=== PATIENT | male | born 1950 | race Caucasian/White ===

== ENCOUNTER 2018-03-12 21:19 | Emergency (ER) | payer MEDICARE, BC ==
[2018-03-12 21:27] VITALS: BP 139/84
[2018-03-12] MEDS ORDERED: Acetaminophen/oxyCODONE 325-5 MG Tab PO ONE (21:44)
--- NOTE | 2018-03-12 21:58 | EDM.PDOC ---
ED HPI GENERAL MEDICAL PROBLEM - General Chief Complaint: Upper Extremity Injury/Pain Stated Complaint: HAND INJURY Time Seen by Provider: 03/12/18 21:33 Source of Information: Reports: Patient History Limitations: Reports: No Limitations - History of Present Illness INITIAL COMMENTS - FREE TEXT/NARRATIVE: 68 year old male presents for evaluation and treatment of an injury to the left hand. Patient reports he was walking when he tripped on a rug. Fell onto his left hand. Reports pain to the first and 5th metacarpals. No numbness or tingling. No swelling, pallor or erythema. No obvious deformity. Took 1gram of tylenol prior to arrival in the ER and continues to have pain. Patient denies any head trauma from the fall. Onset: Today Location: Reports: Upper Extremity, Left Left Hand Pain Score (Numeric/FACES): 7 - Related Data Allergies Allergy/AdvReac Type Severity Reaction Status Date / Time No Known Allergies Allergy Verified 03/12/18 21:27 Home Meds: Home Meds Alpha Lipoic Acid 600 mg PO DAILY 07/11/15 [History] Aspirin [Halfprin] 81 mg PO DAILY 07/11/15 [History] Cetirizine [ZyrTEC] 10 mg PO DAILY 07/11/15 [History] Cholecalciferol (Vitamin D3) [Vitamin D3] 2,000 units PO DAILY 07/11/15 [History ] Cyanocobalamin (Vitamin B12) [Vitamin B12] 2,500 mcg SL DAILY 07/11/15 [History] Docusate Sodium [Colace] 100 mg PO BID 07/11/15 [History] Furosemide 20 mg PO BID 07/11/15 [History] Gemfibrozil 600 mg PO DAILY 07/11/15 [History] Levothyroxine Sodium [Tirosint] 50 mcg PO DAILY 07/11/15 [History] Multivit-Min/FA/Lycopene/Lut [Centrum Silver Tablet] 1 tab PO DAILY 07/11/15 [ History] Naproxen 250 mg PO BID 07/11/15 [History] Psyllium with Sucrose [Metamucil] 1 each PO BID PRN 07/11/15 [History] Venlafaxine [Effexor XR] 150 mg PO DAILY 07/11/15 [History] guaiFENesin [Mucinex] 400 mg PO BID 10/10/15 [History] Gluc/Damien-Msm#2/C/D3/Antonio/Born [Blbwlwrvkk-Bsrtpzzrjlf-BVT] 1,500 mg PO BID 02/14 [History] Losartan [Cozaar] 50 mg PO DAILY 09/05/16 [History] Fish Oil/DHA/EPA [Fish Oil 1,200 MG] 1 tab PO DAILY 10/16/16 [History] Venlafaxine [Effexor] 75 mg PO DAILY 10/16/16 [History] Acetaminophen/oxyCODONE [Percocet 325-5 MG] 1 tab PO Q4HR PRN #15 tab 03/12/18 [ Rx] Past Medical History Other Cardiovascular History: occasional swelling in feet and SOB when climbing the steps Other Respiratory History: seasonal allergies Neurological History: Reports: Neuropathy, Peripheral Psychiatric History: Reports: Depression - Past Surgical History HEENT Surgical History: Reports: Cataract Surgery, Oral Surgery, Tonsillectomy, Other (See Below) GI Surgical History: Reports: Appendectomy, Cholecystectomy Male Surgical History: Reports: TURP-Transurethral Resection of Prostate Musculoskeletal Surgical History: Reports: Other (See Below) Social & Family History - Family History Cardiac: Reports: Bypass Oncologic: Reports: Prostate - Tobacco Use Smoking Status *Q: Never Smoker Second Hand Smoke Exposure: No - Caffeine Use Caffeine Use: Reports: None - Recreational Drug Use Recreational Drug Use: No Review of Systems - Review of Systems Review Of Systems: See Below Musculoskeletal: Reports: Hand Pain (left). Denies: Joint Swelling Skin: Denies: Pallor, Bruising, Wound Neurological: Denies: Numbness, Tingling ED EXAM, GENERAL - Physical Exam Exam: See Below Exam Limited By: No Limitations General Appearance: Alert, WD/WN, No Apparent Distress Respiratory/Chest: No Respiratory Distress Cardiovascular: Normal Peripheral Pulses, Regular Rate, Rhythm Peripheral Pulses: 2+: Radial (L), Radial (R) Extremities: Normal Inspection, Normal Range of Motion, Normal Capillary Refill , Other (tenderness to palpation to the first and fifth metacarpals, no snuff box tenderness). No: Joint Swelling Neurological: Alert, Oriented, Normal Cognition Psychiatric: Normal Affect, Normal Mood Skin Exam: Warm, Dry, Normal Color Course - Vital Signs Last Recorded V/S: Last Vital Signs Temp 97.9 F 03/12/18 21:24 Pulse 87 03/12/18 21:24 Resp 18 06/11/18 21:24 BP 139/84 03/12/18 21:24 Pulse Ox 98 03/12/18 21:24 - Orders/Labs/Meds Meds: Medications Discontinued Medications Generic Name Dose Route Start Last Admin Trade Name Omar PRN Reason Stop Dose Admin Oxycodone/Acetaminophen 1 tab 03/12/18 21:44 03/12/18 21:51 Percocet 325-5 Mg PO 03/12/18 21:45 1 tab ONETIME ONE Administration - Radiology Interpretation Free Text/Narrative:: xray reviewed by myself and Dr. Hussein shows no acute fractures or dislocations. - Re-Assessments/Exams Free Text/Narrative Re-Assessment/Exam: 03/12/18 22:32 Reviewed the xray results with the patient. Will place in a splint. Follow-up with PCP if not better within one week. Warned if not better may require a repeat xray. Discharge instructions as documented. Departure - Departure Time of Disposition: 22:35 Disposition: Home, Self-Care 01 Condition: Fair Clinical Impression: Fall, Hand pain, left - Discharge Information Prescriptions: Acetaminophen/oxyCODONE [Percocet 325-5 MG] 1 tab PO Q4HR PRN #15 tab PRN Reason: Pain Instructions: Hand Pain Referrals: Reji Martin MD [Primary Care Provider] - Forms: ED Department Discharge, ED Return to Work/School Form Additional Instructions: you were given medication ER in the ER that can affect your ability to drive and operate machinery. Do not drive or operate machinery within 12 hours of taking prescription narcotic pain medication. [id number] ibuprofen as needed for pain. Do not take more than 3200 mg of ibuprofen from all sources in 1 day. Percocet 1 or 2 tabs every 4-6 hours as needed for severe pain not relieved by ibuprofen. Percocet is habit-forming, take as few of these as needed to control your pain. Do not drive or operate machinery within 12 hours of taking Percocet. Follow-up with your primary care provider for symptoms have not improved much within one week. wear the wrist splint as needed. Ice and elevate the hand, below the level of heart. Please return to ER if your symptoms change or worsen.
--- NOTE | 2018-03-13 08:45 | CR ---
Right hand: Four views of the right hand were obtained. Comparison: No previous hand exam. Mild joint space narrowing is seen within the DIP and PIP joints. Bony structures are osteopenic. Mild degenerative change is noted within the CMC joints of the thumb. No acute fracture, dislocation or other bony abnormality is identified. Impression: 1. Incidental findings as noted above. Nothing acute is appreciated on left hand exam. Diagnostic code #2
== END 2018-03-12 22:58 | disposition home or self-care (01) ==
LOC: JD.ED 21:19
DX: M79.642 Pain in left hand (principal); Z79.899 Other long term (current) drug therapy; Z79.82 Long term (current) use of aspirin; W18.09XA Striking against other object with subsequent fall, initial encounter
CPT/HCPCS: 73130; 99283; A9270

== ENCOUNTER 2020-02-02 11:01 | Emergency (ER) | payer MEDICARE, BC, MEDICAID, OTHER ==
[2020-02-02 11:15] VITALS: BP 129/77; PULSE 73
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
--- NOTE | 2020-02-02 12:33 | CR ---
Left wrist: 4 views left wrist were obtained. Comparison: No prior wrist exam is available. Joint spaces are preserved. No acute fracture, dislocation or other bony abnormality is appreciated. Impression: 1. No abnormality is identified on left wrist exam. Diagnostic code #1 This report was dictated in MDT
== END 2020-02-02 12:35 | disposition home or self-care (01) ==
LOC: JD.ED 11:01
DX: S63.502A Unspecified sprain of left wrist, initial encounter (principal); F32.9 Major depressive disorder, single episode, unspecified; Z79.899 Other long term (current) drug therapy; Z79.82 Long term (current) use of aspirin; W50.0XXA Accidental hit or strike by another person, initial encounter
CPT/HCPCS: 29125; 73110-26-LT; 73110-LT; 99283; 99283-25

== ENCOUNTER 2021-07-01 08:19 | Emergency (ER) | payer MEDICARE, BC, MEDICAID, OTHER ==
[2021-07-01 08:53] VITALS: BP 153/62; PULSE 85
--- NOTE | 2021-07-01 09:09 | EDM.PDOC ---
ED HPI GENERAL MEDICAL PROBLEM - General Chief Complaint: Lower Extremity Injury/Pain Stated Complaint: fall last nigh body pains Time Seen by Provider: 07/01/21 08:45 Source of Information: Reports: Patient History Limitations: Reports: No Limitations - History of Present Illness INITIAL COMMENTS - FREE TEXT/NARRATIVE: The patient presents with pain after a fall. The patient fell down some stairs last night. He did not hit his head or hurt his neck. He has no chest or abdominal pain. He has no headache. He has right shoulder, right hand, right knee and left low back pain. He took some tylenol last night but did not sleep well due to the pain. He is not on any blood thinners. Onset: Sudden Duration: Day(s): (last night) Location: Reports: Back, Upper Extremity, Right, Lower Extremity, Right Quality: Reports: Sharp Severity: Moderate Improves with: Reports: Immobilization Worsens with: Reports: Movement Context: Reports: Trauma (fell down some stairs) Associated Symptoms: Reports: No Other Symptoms Left Hip Pain Score (Numeric/FACES): 5 - Related Data Allergies Allergy/AdvReac Type Severity Reaction Status Date / Time No Known Allergies Allergy Verified 02/02/20 11:10 Home Meds: Home Meds Alpha Lipoic Acid 600 mg PO DAILY 07/11/15 [History] Aspirin [Halfprin] 81 mg PO DAILY 07/11/15 [History] Cetirizine [ZyrTEC] 10 mg PO DAILY 07/11/15 [History] Cholecalciferol (Vitamin D3) [Vitamin D3] 2,000 units PO DAILY 07/11/15 [ History] Cyanocobalamin (Vitamin B12) [Vitamin B12] 2,500 mcg SL DAILY 07/11/15 [History] Docusate Sodium [Colace] 100 mg PO BID 07/11/15 [History] Furosemide 20 mg PO BID 07/11/15 [History] Gemfibrozil 600 mg PO DAILY 07/11/15 [History] Levothyroxine Sodium [Tirosint] 50 mcg PO DAILY 07/11/15 [History] Multivit-Min/FA/Lycopen/Lutein [Centrum Silver Tablet] 1 tab PO DAILY 07/11/15 [History] Naproxen 250 mg PO BID 07/11/15 [History] Psyllium with Sucrose [Metamucil] 1 each PO BID PRN 10/10/15 [History] Venlafaxine [Effexor XR] 150 mg PO DAILY 07/11/15 [History] guaiFENesin [Mucinex] 400 mg PO BID 07/11/15 [History] Glucosam/Chond-MSM 2/C/D3/Antonio [Qxyuolkatt-Pcyykrucegp-IWZ] 1,500 mg PO BID 09/05/16 [History] Losartan [Cozaar] 50 mg PO DAILY 09/05/16 [History] Fish Oil/DHA/EPA [Fish Oil 1,200 MG] 1 tab PO DAILY 10/16/16 [History] Venlafaxine [Effexor] 75 mg PO DAILY 10/16/16 [History] Acetaminophen/oxyCODONE [Percocet 325-5 MG] 1 tab PO Q4HR PRN #15 tab 03/12/18 [Rx] Cyclobenzaprine [Flexeril] 10 mg PO TID PRN #20 tab 07/01/21 [Rx] Past Medical History Cardiovascular History: Reports: High Cholesterol, Hypertension Other Cardiovascular History: occasional swelling in feet and SOB when climbing the steps Other Respiratory History: seasonal allergies Neurological History: Reports: Neuropathy, Peripheral Psychiatric History: Reports: Depression - Past Surgical History HEENT Surgical History: Reports: Cataract Surgery, Oral Surgery, Tonsillectomy, Other (See Below) Other HEENT Surgeries/Procedures: nasal surgery GI Surgical History: Reports: Appendectomy, Cholecystectomy Male Surgical History: Reports: TURP-Transurethral Resection of Prostate Musculoskeletal Surgical History: Reports: Other (See Below) Other Musculoskeletal Surgeries/Procedures:: surgery of right and left feet, femur fracture fixation Social & Family History - Family History Cardiac: Reports: Bypass Oncologic: Reports: Prostate - Tobacco Use Tobacco Use Status *Q: Never Tobacco User - Caffeine Use Caffeine Use: Reports: None - Recreational Drug Use Recreational Drug Use: No Review of Systems - Review of Systems Review Of Systems: See Below Constitutional: Reports: No Symptoms Eyes: Reports: No Symptoms Ears: Reports: No Symptoms Nose: Reports: No Symptoms Mouth/Throat: Reports: No Symptoms Respiratory: Reports: No Symptoms Cardiovascular: Reports: No Symptoms GI/Abdominal: Reports: No Symptoms Genitourinary: Reports: No Symptoms Musculoskeletal: Reports: Back Pain, Other (right shoulder, knee and hand pain) ED EXAM, GENERAL - Physical Exam Exam: See Below Exam Limited By: No Limitations General Appearance: Alert, No Apparent Distress Ears: Normal External Exam Nose: Normal Inspection Head: Atraumatic, Normocephalic Neck: Normal Inspection, Supple, Non-Tender Respiratory/Chest: No Respiratory Distress, Lungs Clear, Normal Breath Sounds Cardiovascular: Regular Rate, Rhythm, No Edema, No Murmur GI/Abdominal: Soft, Non-Tender, No Organomegaly, No Mass Back Exam: Other (Pain upon palpation to the left low back) Extremities: Normal Inspection (Pain upon palpation to the right shoulder, right hand and fingers, right knee good sensation distally) Course - Vital Signs Last Recorded V/S: Last Vital Signs Temp 96.5 F L 07/01/21 08:48 Pulse 85 07/01/21 08:48 Resp 16 07/01/21 08:48 BP 153/62 H 07/01/21 08:48 Pulse Ox 98 07/01/21 08:48 - Re-Assessments/Exams Free Text/Narrative Re-Assessment/Exam: 07/01/21 09:11 I ordered an x-ray of his low back, right shoulder, right hand and right knee. 07/01/21 10:21 The x-rays show nothing acute. There is degenerative changes and an old compression deformity at T12. I will get him a muscle relaxer and discharge him home. Departure - Departure Time of Disposition: 10:25 Disposition: Home, Self-Care 01 Condition: Good Clinical Impression: Fall Qualifiers: Encounter type: initial encounter Qualified Code(s): W19.XXXA - Unspecified fall, initial encounter Low back pain Qualifiers: Chronicity: acute Back pain laterality: left Sciatica presence: without sciatica Qualified Code(s): M54.5 - Low back pain Contusion of right hand Qualifiers: Encounter type: initial encounter Qualified Code(s): S60.221A - Contusion of right hand, initial encounter Sprain of right knee Qualifiers: Encounter type: initial encounter Involved ligament of knee: unspecified ligament Qualified Code(s): S83.91XA - Sprain of unspecified site of right knee, initial encounter - Discharge Information *PRESCRIPTION DRUG MONITORING PROGRAM REVIEWED*: Not Applicable *COPY OF PRESCRIPTION DRUG MONITORING REPORT IN PATIENT AYLIN: Not Applicable Prescriptions: Cyclobenzaprine [Flexeril] 10 mg PO TID PRN #20 tab PRN Reason: Pain Referrals: Reji Martin MD [Primary Care Provider] - 1 Week Forms: ED Department Discharge Additional Instructions: Ice the areas that hurt for 15 minutes 3 times per day for 2 days. Take tylenol or motrin for pain. You may also take flexeril every 8 hours as needed for pain. Follow up with Dr Martin. Please return if you are worse. Sepsis Event Note (ED) - Focused Exam Vital Signs: Vital Signs Temp Pulse Resp BP Pulse Ox 07/01/21 08:48 96.5 F L 85 16 153/62 H 98
--- NOTE | 2021-07-01 09:58 | CR ---
Right hand: 4 views of the right hand were obtained. Comparison: No prior right hand study is available. Mild joint space narrowing is scattered within the DIP and PIP joints. No acute fracture, dislocation or other bony abnormality is appreciated. Impression: 1. Mild degenerative change as described above. 2. Nothing acute is seen on right hand exam. Diagnostic code #2
--- NOTE | 2021-07-01 10:02 | CR ---
Right knee: 4 views of the right knee were obtained. Comparison: No prior right knee study is available. Small spur is noted at the attachment of the quadriceps tendon to the patella. Small spur is also noted off the anterior tibial tuberosity at the attachment of the patellar ligament. Medial and lateral joint spaces are fairly well preserved. Bony structures are slightly osteopenic. No acute fracture, dislocation or other bony abnormality is appreciated. Impression: 1. Small patellar spur and spur off the anterior tibial tuberosity. 2. Nothing acute is seen on right knee exam. Diagnostic code #2
--- NOTE | 2021-07-01 10:06 | CR ---
Lumbar spine: AP, lateral and coned-down lateral view centered to the lumbosacral junction are obtained. Comparison: No prior lumbar spine imaging is available. Disc space narrowing is noted at T11-12, T12-L1, L1-2 and posteriorly at L2-3. Mild posterior disc space narrowing is seen at L4-5. Slight anterior wedging is seen at T12 and is most likely old. Scattered endplate osteophytes are seen throughout the lumbar and lower thoracic spines. Pedicles are intact. Visualized transverse and spinous processes show no discrete abnormality. No acute fracture or subluxation is seen. Orthopedic hardware is partially seen within the right hip. Surgical clips are seen from prior cholecystectomy. Impression: 1. Degenerative change as noted above. 2. Slight anterior wedging of T12 which is most likely old. 3. Old surgery as noted above. Nothing acute is appreciated. Diagnostic code #2
--- NOTE | 2021-07-01 10:07 | CR ---
Right shoulder: 3 views of the right shoulder were obtained. Comparison: No prior right shoulder study is available. Mild joint space narrowing is seen within the acromioclavicular joint. Minimal spurring is noted off the glenoid. No fracture, dislocation or other bony abnormality is appreciated. Impression: 1. Mild degenerative change. 2. Nothing acute is appreciated on right shoulder study. Diagnostic code #2
== END 2021-07-01 10:52 | disposition home or self-care (01) ==
LOC: JD.ED 08:19
DX: S83.91XA Sprain of unspecified site of right knee, initial encounter (principal); S60.221A Contusion of right hand, initial encounter; M54.5 Low back pain; E78.00 Pure hypercholesterolemia, unspecified; I10 Essential (primary) hypertension; Z79.82 Long term (current) use of aspirin; Z79.899 Other long term (current) drug therapy; W10.9XXA Fall (on) (from) unspecified stairs and steps, initial encounter
CPT/HCPCS: 72100; 72100-26; 73030-26-RT; 73030-RT; 73130-26-RT; 73130-RT; 73564-26-RT; 73564-RT; 99283-25

== ENCOUNTER 2024-03-12 16:14 | Emergency (ER) | payer MEDICARE, BC, MEDICAID ==
[2024-03-12] MEDS: Acetaminophen 325 MG Tab PO ONE (16:37)
[2024-03-12] MEDS: fentaNYL 100 MCG/2 ML SDV IVPUSH ONE (16:38)
[2024-03-12] MEDS: Lidocaine 1% 20 ML MDV INJECT ONE (16:38)
[2024-03-12 20:50] VITALS: BP 135/85; PULSE 88
== END 2024-03-12 20:54 | disposition home or self-care (01) ==
LOC: JD.ED 16:14
DX: S42.212A Unspecified displaced fracture of surgical neck of left humerus, initial encounter for closed fracture (principal); S52.571A Other intraarticular fracture of lower end of right radius, initial encounter for closed fracture; I10 Essential (primary) hypertension; E11.40 Type 2 diabetes mellitus with diabetic neuropathy, unspecified; Z90.49 Acquired absence of other specified parts of digestive tract; Z79.82 Long term (current) use of aspirin; Z79.899 Other long term (current) drug therapy; W01.0XXA Fall on same level from slipping, tripping and stumbling without subsequent striking against object, initial encounter; Y92.29 Other specified public building as the place of occurrence of the external cause
CPT/HCPCS: 23605; 25605; 71045; 73030; 73060; 73070; 73100; 99283; A9270; 25505; J3010; J3490

== ENCOUNTER 2024-03-19 15:16 | Emergency (ER) | payer MEDICARE, BC, MEDICAID ==
[2024-03-19] MEDS: Potassium Chloride 10 MEQ in Premix Bag 1 BAG IV SCH (17:21)
[2024-03-19] MEDS: Sodium Chloride 0.9% 1,000 ML IV SCH (17:22)
[2024-03-19] MEDS: Sodium Chloride 0.9% 10 ML Syringe FLUSH PRN (17:26)
[2024-03-19 17:43] LABS: BASOPHILS ABSOLUTE AUTO 0.1 K/mm3 (0.0-0.2); BASOPHILS PERCENT AUTO 0.5 % (0.0-1.0); EOSINOPHILS ABSOLUTE AUTO 0.2 K/mm3 (0.0-0.4); EOSINOPHILS PERCENT AUTO 1.6 % (0.0-6.0); HEMATOCRIT 37.6 % (42.0-52.0); HEMOGLOBIN 12.7 gm/dl (14.0-18.0); IMMATURE GRAN ABSOLUTE AUTO 0.07 K/mm3 (0.00-0.05); IMMATURE GRAN PERCENT AUTO 0.5 % (0.0-0.4); LYMPHOCYTES ABSOLUTE AUTO 2.4 K/mm3 (1.0-4.8); MEAN CORPUSCULAR HEMOGLOBIN 30.8 pg (28.0-32.0); MEAN CORPUSCULAR HGB CONC 33.8 g/dl (32.0-36.0); MEAN PLATELET VOLUME 9.5 fl (9.4-12.4); MONOCYTES ABSOLUTE AUTO 1.6 K/mm3 (0.0-0.8); MONOCYTES PERCENT AUTO 11.4 % (0.0-8.0); NEUTROPHILS ABSOLUTE AUTO 9.7 K/mm3 (1.8-7.7); PLATELET COUNT,PLT 404 K/mm3 (150-400); RED BLOOD CELL COUNT 4.13 M/mm3 (4.52-5.90); WHITE BLOOD CELL COUNT,WBC 14.04 K/mm3 (3.9-11.3)
[2024-03-19 18:00] LABS: A/G RATIO 0.7 (1-2); ALANINE AMINOTRANSFERASE,ALT 43 U/L (16-63); ALBUMIN 3.1 g/dl (3.4-5.0); ALKALINE PHOSPHATASE 80 U/L (46-116); ANION GAP 16.1 (5-15); BLOOD UREA NITROGEN,BUN 18 mg/dL (7-18); CARBON DIOXIDE,CO2 27 mEq/L (21-32); CHLORIDE,CL 95 mEq/L (98-107); ESTIMATED GFR 78 mL/min (>60); GLUCOSE RANDOM 126 mg/dL (70-99); PROTEIN TOTAL,TP 7.4 g/dl (6.4-8.2); SODIUM,NA 135 mEq/L (136-145)
[2024-03-19 18:03] LABS: ASPARTATE AMNIOTRANSFERASE,AST 39 U/L (15-37); POTASSIUM,K 3.1 mEq/L (3.5-5.1)
[2024-03-19 18:06] LABS: LACTIC ACID 1.2 mmol/L (0.4-2.0)
[2024-03-19 18:49] LABS: BILIRUBIN,URINE NEGATIVE (Negative); COLOR,URINE YELLOW (Yellow); GLUCOSE,URINE 2+ (Negative); KETONES,URINE TRACE (Negative); LEUKOCYTE ESTERASE,URINE 1+ (Negative); NITRITE,URINE POSITIVE (Negative); OCCULT BLOOD,URINE 1+ (Negative); PROTEIN,URINE TRACE (Negative)
[2024-03-19 18:50] LABS: APPEARANCE,URINE SLT CLOUDY (Clear)
[2024-03-19 19:22] LABS: BACTERIA,URINE MODERATE /hpf (FEW); MUCUS,URINE FEW /hpf (FEW); SQUAMOUS EPITHELIAL CELLS,UR 0-5 /hpf (0-5)
[2024-03-19] MEDS: Doxycycline Monohydrate 100 MG Cap PO ONE (19:57)
[2024-03-19 23:43] VITALS: BP 132/74; PULSE 86
== END 2024-03-19 23:05 | disposition home or self-care (01) ==
LOC: JD.ED 15:16
DX: E87.6 Hypokalemia (principal); T83.511A Infection and inflammatory reaction due to indwelling urethral catheter, initial encounter; N39.0 Urinary tract infection, site not specified; I10 Essential (primary) hypertension; E78.00 Pure hypercholesterolemia, unspecified; Z79.84 Long term (current) use of oral hypoglycemic drugs; Z79.899 Other long term (current) drug therapy; Z79.82 Long term (current) use of aspirin
CPT/HCPCS: 36415; 80053; 81001; 83605; 83735; 85025; 87040; 87086; 87088; 87186; 93005; 96361; 96365; 96366; 99285; A9270; J3480; J3490; J7030; 87077; 93010; 99284

== ENCOUNTER 2024-07-03 01:06 | Emergency (ER) | payer MEDICARE, BC, MEDICAID ==
[2024-07-03] MEDS ORDERED: Nitroglycerin/D5W 25 MG/250 ML BOTTLE IV SCH (01:30)
[2024-07-03 01:40] LABS: BASOPHILS ABSOLUTE AUTO 0.1 K/mm3 (0.0-0.2); BASOPHILS PERCENT AUTO 0.6 % (0.0-1.0); EOSINOPHILS ABSOLUTE AUTO 0.3 K/mm3 (0.0-0.4); EOSINOPHILS PERCENT AUTO 1.8 % (0.0-6.0); HEMATOCRIT 40.5 % (42.0-52.0); HEMOGLOBIN 13.2 gm/dl (14.0-18.0); IMMATURE GRAN PERCENT AUTO 0.6 % (0.0-0.4); LYMPHOCYTES ABSOLUTE AUTO 2.1 K/mm3 (1.0-4.8); LYMPHOCYTES PERCENT AUTO 11.7 % (24.0-44.0); MEAN CORPUSCULAR HEMOGLOBIN 30.5 pg (28.0-32.0); MEAN CORPUSCULAR HGB CONC 32.6 g/dl (32.0-36.0); MEAN CORPUSCULAR VOLUME 93.5 fl (83.0-99.0); MEAN PLATELET VOLUME 9.6 fl (9.4-12.4); MONOCYTES ABSOLUTE AUTO 1.3 K/mm3 (0.0-0.8); MONOCYTES PERCENT AUTO 7.1 % (0.0-8.0); NEUTROPHILS ABSOLUTE AUTO 14.1 K/mm3 (1.8-7.7); NEUTROPHILS PERCENT AUTO 78.2 % (41.0-71.0); PLATELET COUNT,PLT 318 K/mm3 (150-400); RED BLOOD CELL COUNT 4.33 M/mm3 (4.52-5.90); WHITE BLOOD CELL COUNT,WBC 17.98 K/mm3 (3.9-11.3)
[2024-07-03 02:05] LABS: A/G RATIO 1.2 (1-2); ALBUMIN 4.1 g/dl (3.4-5.0); ANION GAP 12.8 (5-15); BILIRUBIN TOTAL 0.5 mg/dL (0.2-1.0); BUN/CREATININE RATIO 14.5 (14-18); C-REACTIVE PROTEIN 0.33 mg/dL (<0.30); CALCIUM 9.2 mg/dL (8.5-10.1); CREATININE 1.1 mg/dL (0.7-1.3); EST CRCL DRUG DOSING (CG) 51.56 mL/min; MAGNESIUM 1.5 mg/dL (1.8-2.4); POTASSIUM,K 3.8 mEq/L (3.5-5.1); PROTEIN TOTAL,TP 7.5 g/dl (6.4-8.2); TSH 2.226 uIU/mL (0.358-3.74)
[2024-07-03 02:07] LABS: HEMOGLOBIN A1C 6.4 %
[2024-07-03 02:09] LABS: LACTIC ACID 2.4 mmol/L (0.4-2.0)
[2024-07-03] MEDS: Metoclopramide 10 MG/2 ML SDV IVPUSH ONE (02:29)
[2024-07-03] MEDS: diphenhydrAMINE 50 MG/ML SDV IVPUSH ONE (02:29)
[2024-07-03] MEDS: Dicyclomine 10 MG Cap PO ONE (02:29)
[2024-07-03] MEDS: Aspirin 81 MG Tab.Chew PO ONE (02:30)
[2024-07-03] MEDS: HYDROmorphone 0.5 MG/0.5 ML Syringe IVPUSH ONE (02:30)
[2024-07-03 02:46] LABS: APPEARANCE,URINE SLT CLOUDY (Clear); BILIRUBIN,URINE NEGATIVE (Negative); COLOR,URINE YELLOW (Yellow); GLUCOSE,URINE 3+ (Negative); KETONES,URINE NEGATIVE (Negative); LEUKOCYTE ESTERASE,URINE 1+ (Negative); NITRITE,URINE POSITIVE (Negative); OCCULT BLOOD,URINE NEGATIVE (Negative); PH,URINE 6.5 (5.0-8.0); PROTEIN,URINE NEGATIVE (Negative); UROBILINOGEN,URINE 0.2 (0.2-1.0)
[2024-07-03 02:47] LABS: RBC,URINE NOT SEEN /hpf (0-5)
[2024-07-03 02:48] LABS: AMORPHOUS SEDIMENT,URINE RARE /hpf (NOT SEEN); BACTERIA,URINE MODERATE /hpf (FEW); EPITHELIAL CELLS,URINE 0-5 /hpf (0-5); MUCUS,URINE NOT SEEN /hpf (FEW)
[2024-07-03] MEDS: cefTRIAXone 2 GM in Sodium Chloride 0.9% 100 ML IV ONE (02:56)
[2024-07-03] MEDS: Sodium Chloride 0.9% 1,000 ML IV SCH (02:56)
[2024-07-03] MEDS: Iopamidol 755 Mg/ML 100 ML Bottle IVPUSH ONE (03:45)
[2024-07-03] MEDS: Alum Hydrox/Mag Hydrox/Simeth 30 ML, Lidocaine 2% 15 ML PO ONE (04:55)
[2024-07-03] MEDS: Levofloxacin 500 MG Tab PO ONE (06:58)
[2024-07-03 08:04] VITALS: BP 140/90; PULSE 95
== END 2024-07-03 08:45 ==
LOC: JD.ED 01:06
DX: R07.89 Other chest pain (principal); K44.9 Diaphragmatic hernia without obstruction or gangrene; N10 Acute pyelonephritis; N31.2 Flaccid neuropathic bladder, not elsewhere classified; E78.00 Pure hypercholesterolemia, unspecified; I10 Essential (primary) hypertension; Z79.82 Long term (current) use of aspirin; Z79.84 Long term (current) use of oral hypoglycemic drugs; Z79.899 Other long term (current) drug therapy
CPT/HCPCS: 36415; 71045; 71045-26; 71275; 71275-26; 80053; 81001; 83036; 83605; 83615; 83690; 83735; 83880; 84443; 84484; 85025; 85379; 86140; 87086; 87088; 87186; 93005; 96361; 96365; 96375; 99285-25; A9270-GY; J0696; J1200; J2765; J3490; J7030; Q9967

== ENCOUNTER 2024-09-23 14:23 | Emergency (ER) | payer MEDICARE, BC, MEDICAID ==
[2024-09-23 15:29] VITALS: BP 135/84; PULSE 104
[2024-09-23 15:36] LABS: BASOPHILS ABSOLUTE AUTO 0.1 K/mm3 (0.0-0.2); BASOPHILS PERCENT AUTO 0.5 % (0.0-1.0); EOSINOPHILS ABSOLUTE AUTO 0.2 K/mm3 (0.0-0.4); EOSINOPHILS PERCENT AUTO 1.1 % (0.0-6.0); HEMATOCRIT 38.8 % (42.0-52.0); HEMOGLOBIN 12.8 gm/dl (14.0-18.0); IMMATURE GRAN ABSOLUTE AUTO 0.07 K/mm3 (0.00-0.05); IMMATURE GRAN PERCENT AUTO 0.5 % (0.0-0.4); LYMPHOCYTES ABSOLUTE AUTO 1.6 K/mm3 (1.0-4.8); LYMPHOCYTES PERCENT AUTO 10.7 % (24.0-44.0); MEAN CORPUSCULAR VOLUME 93.9 fl (83.0-99.0); MEAN PLATELET VOLUME 9.3 fl (9.4-12.4); MONOCYTES ABSOLUTE AUTO 1.2 K/mm3 (0.0-0.8); NEUTROPHILS ABSOLUTE AUTO 11.8 K/mm3 (1.8-7.7); NEUTROPHILS PERCENT AUTO 79.2 % (41.0-71.0); PLATELET COUNT,PLT 302 K/mm3 (150-400); RED BLOOD CELL COUNT 4.13 M/mm3 (4.52-5.90); WHITE BLOOD CELL COUNT,WBC 14.84 K/mm3 (3.9-11.3)
[2024-09-23 15:54] LABS: APPEARANCE,URINE CLEAR (Clear); BILIRUBIN,URINE NEGATIVE (Negative); COLOR,URINE YELLOW (Yellow); GLUCOSE,URINE 2+ (Negative); KETONES,URINE NEGATIVE (Negative); LEUKOCYTE ESTERASE,URINE NEGATIVE (Negative); NITRITE,URINE NEGATIVE (Negative); OCCULT BLOOD,URINE NEGATIVE (Negative); PH,URINE 6.5 (5.0-8.0); PROTEIN,URINE NEGATIVE (Negative); UROBILINOGEN,URINE 0.2 (0.2-1.0)
[2024-09-23 15:54] LABS: INR 1.01; PROTHROMBIN TIME 10.7 SECONDS (9.7-12.0)
[2024-09-23 15:55] LABS: PTT,PARTIAL THROMBOPLSTIN TIME 28.8 SECONDS (21.7-31.4)
[2024-09-23 16:06] LABS: A/G RATIO 1.1 (1-2); ALANINE AMINOTRANSFERASE,ALT 24 U/L (16-63); ALKALINE PHOSPHATASE 108 U/L (46-116); ANION GAP 13.2 (5-15); ASPARTATE AMNIOTRANSFERASE,AST 11 U/L (15-37); BILIRUBIN TOTAL 0.8 mg/dL (0.2-1.0); BLOOD UREA NITROGEN,BUN 17 mg/dL (7-18); BUN/CREATININE RATIO 13.1 (14-18); CARBON DIOXIDE,CO2 29 mEq/L (21-32); CHLORIDE,CL 99 mEq/L (98-107); CREATININE 1.3 mg/dL (0.7-1.3); EST CRCL DRUG DOSING (CG) 43.85 mL/min; ESTIMATED GFR 57 mL/min (>60); GLUCOSE RANDOM 170 mg/dL (70-99); MAGNESIUM 2.3 mg/dL (1.8-2.4); POTASSIUM,K 4.2 mEq/L (3.5-5.1); PROTEIN TOTAL,TP 7.8 g/dl (6.4-8.2); SODIUM,NA 137 mEq/L (136-145)
[2024-09-23 16:12] LABS: TROPONIN I HIGH SENSITIVITY < 4 pg/mL (<=76)
[2024-09-23] MEDS ORDERED: Sodium Chloride 0.9% 10 ML Syringe FLUSH PRN (16:49)
[2024-09-23] MEDS: Iopamidol 755 Mg/ML 100 ML Bottle IVPUSH ONE (17:31)
[2024-09-23] MEDS: Sodium Chloride 0.9% 45 ML IV SCH (17:31)
== END 2024-09-23 19:27 | disposition home or self-care (01) ==
LOC: JD.ED 14:23
DX: I31.39 Other pericardial effusion (noninflammatory) (principal); I10 Essential (primary) hypertension; E78.00 Pure hypercholesterolemia, unspecified; Z79.899 Other long term (current) drug therapy; Z79.84 Long term (current) use of oral hypoglycemic drugs; Z79.01 Long term (current) use of anticoagulants
CPT/HCPCS: 36415; 71045; 71275; 80053; 81003; 83735; 83880; 84484; 85025; 85379; 85610; 85730; 87428; 93005; 99285; J3490; Q9967

== ENCOUNTER 2024-10-10 14:16 | Emergency (ER) | payer MEDICARE, BC, MEDICAID ==
[2024-10-10 15:15] LABS: BASOPHILS ABSOLUTE AUTO 0.1 K/mm3 (0.0-0.2); BASOPHILS PERCENT AUTO 0.4 % (0.0-1.0); EOSINOPHILS PERCENT AUTO 0.3 % (0.0-6.0); HEMATOCRIT 36.3 % (42.0-52.0); IMMATURE GRAN ABSOLUTE AUTO 0.06 K/mm3 (0.00-0.05); IMMATURE GRAN PERCENT AUTO 0.4 % (0.0-0.4); LYMPHOCYTES ABSOLUTE AUTO 1.7 K/mm3 (1.0-4.8); LYMPHOCYTES PERCENT AUTO 10.7 % (24.0-44.0); MEAN CORPUSCULAR HEMOGLOBIN 31.1 pg (28.0-32.0); MEAN CORPUSCULAR HGB CONC 33.1 g/dl (32.0-36.0); MEAN PLATELET VOLUME 9.2 fl (9.4-12.4); MONOCYTES ABSOLUTE AUTO 1.5 K/mm3 (0.0-0.8); MONOCYTES PERCENT AUTO 9.7 % (0.0-8.0); NEUTROPHILS ABSOLUTE AUTO 12.2 K/mm3 (1.8-7.7); NEUTROPHILS PERCENT AUTO 78.5 % (41.0-71.0); PLATELET COUNT,PLT 348 K/mm3 (150-400); RED BLOOD CELL COUNT 3.86 M/mm3 (4.52-5.90); WHITE BLOOD CELL COUNT,WBC 15.48 K/mm3 (3.9-11.3)
[2024-10-10 15:24] VITALS: BP 151/98; PULSE 99
[2024-10-10 15:42] LABS: A/G RATIO 0.7 (1-2); ANION GAP 13.6 (5-15); BILIRUBIN TOTAL 0.4 mg/dL (0.2-1.0); C-REACTIVE PROTEIN 11.56 mg/dL (<0.30); CALCIUM 8.7 mg/dL (8.5-10.1); EST CRCL DRUG DOSING (CG) 68.98 mL/min; POTASSIUM,K 3.6 mEq/L (3.5-5.1); PROTEIN TOTAL,TP 7.2 g/dl (6.4-8.2)
[2024-10-10 16:04] LABS: INR 1.13; PROTHROMBIN TIME 11.9 SECONDS (9.7-12.0)
[2024-10-10 16:06] LABS: PTT,PARTIAL THROMBOPLSTIN TIME 27.1 SECONDS (21.7-31.4)
[2024-10-10 16:09] LABS: LACTIC ACID 2.6 mmol/L (0.4-2.0)
[2024-10-10] MEDS ORDERED: Ondansetron 4 MG/2 ML SDV IVPUSH ONE (17:02)
== END 2024-10-10 16:00 ==
LOC: JD.ED 14:16
DX: I31.39 Other pericardial effusion (noninflammatory) (principal); I10 Essential (primary) hypertension; E78.00 Pure hypercholesterolemia, unspecified; Z90.49 Acquired absence of other specified parts of digestive tract; Z79.899 Other long term (current) drug therapy; Z79.82 Long term (current) use of aspirin; Z79.890 Hormone replacement therapy; Z79.84 Long term (current) use of oral hypoglycemic drugs
CPT/HCPCS: 36415; 71045; 71045-26; 80053; 83605; 84484; 85025; 85610; 85730; 86140; 93005; 99285

== ENCOUNTER 2024-10-20 20:54 | Emergency (ER) | payer MEDICARE, BC, MEDICAID ==
[2024-10-20 21:45] LABS: BASOPHILS ABSOLUTE AUTO 0.1 K/mm3 (0.0-0.2); BASOPHILS PERCENT AUTO 0.5 % (0.0-1.0); EOSINOPHILS ABSOLUTE AUTO 0.3 K/mm3 (0.0-0.4); HEMATOCRIT 36.8 % (42.0-52.0); HEMOGLOBIN 11.9 gm/dl (14.0-18.0); IMMATURE GRAN ABSOLUTE AUTO 0.04 K/mm3 (0.00-0.05); IMMATURE GRAN PERCENT AUTO 0.3 % (0.0-0.4); LYMPHOCYTES ABSOLUTE AUTO 1.9 K/mm3 (1.0-4.8); LYMPHOCYTES PERCENT AUTO 14.8 % (24.0-44.0); MEAN CORPUSCULAR HEMOGLOBIN 30.1 pg (28.0-32.0); MEAN CORPUSCULAR HGB CONC 32.3 g/dl (32.0-36.0); MEAN CORPUSCULAR VOLUME 93.2 fl (83.0-99.0); MEAN PLATELET VOLUME 8.5 fl (9.4-12.4); MONOCYTES ABSOLUTE AUTO 1.1 K/mm3 (0.0-0.8); MONOCYTES PERCENT AUTO 8.9 % (0.0-8.0); NEUTROPHILS ABSOLUTE AUTO 9.4 K/mm3 (1.8-7.7); NEUTROPHILS PERCENT AUTO 73.5 % (41.0-71.0); PLATELET COUNT,PLT 420 K/mm3 (150-400); RED BLOOD CELL COUNT 3.95 M/mm3 (4.52-5.90); WHITE BLOOD CELL COUNT,WBC 12.73 K/mm3 (3.9-11.3)
[2024-10-20] MEDS: Sodium Chloride 0.9% 10 ML Syringe FLUSH PRN (21:46)
[2024-10-20] MEDS: Aspirin 81 MG Tab.Chew PO ONE (21:46)
[2024-10-20] MEDS: Sodium Chloride 0.9% 500 ML IV ONE (21:46)
[2024-10-20 22:18] LABS: A/G RATIO 0.8 (1-2); ALANINE AMINOTRANSFERASE,ALT 36 U/L (16-63); ALBUMIN 3.1 g/dl (3.4-5.0); ALKALINE PHOSPHATASE 98 U/L (46-116); ANION GAP 10.4 (5-15); ASPARTATE AMNIOTRANSFERASE,AST 13 U/L (15-37); BILIRUBIN TOTAL 0.5 mg/dL (0.2-1.0); BLOOD UREA NITROGEN,BUN 8 mg/dL (7-18); CALCIUM 8.7 mg/dL (8.5-10.1); CARBON DIOXIDE,CO2 27 mEq/L (21-32); CHLORIDE,CL 103 mEq/L (98-107); CREATININE 0.8 mg/dL (0.7-1.3); ESTIMATED GFR 92 mL/min (>60); GLUCOSE RANDOM 170 mg/dL (70-99); LIPASE 18 U/L (16-77); MAGNESIUM 1.8 mg/dL (1.8-2.4); POTASSIUM,K 4.4 mEq/L (3.5-5.1); PROTEIN TOTAL,TP 6.9 g/dl (6.4-8.2); SODIUM,NA 136 mEq/L (136-145); TROPONIN I HIGH SENSITIVITY 6 pg/mL (<=76)
[2024-10-20] MEDS: Iopamidol 755 Mg/ML 100 ML Bottle IVPUSH ONE (22:19)
[2024-10-20] MEDS: Sodium Chloride 0.9% 10 ML Syringe FLUSH ONE (22:19)
[2024-10-20] MEDS: Sodium Chloride 0.9% 100 ML IV SCH (22:19)
[2024-10-21] MEDS: Colchicine 0.6 MG Tab PO ONE (00:25)
[2024-10-21] MEDS: Albuterol/Ipratropium 3.0-0.5 MG/3 ML Neb Soln NEB ONE (10:38)
[2024-10-21 11:56] VITALS: BP 126/81; PULSE 85
== END 2024-10-21 11:30 | disposition home or self-care (01) ==
LOC: JD.ED 20:54
DX: I31.39 Other pericardial effusion (noninflammatory) (principal); I10 Essential (primary) hypertension; E78.00 Pure hypercholesterolemia, unspecified; Z90.49 Acquired absence of other specified parts of digestive tract; Z79.82 Long term (current) use of aspirin; Z79.84 Long term (current) use of oral hypoglycemic drugs; Z79.890 Hormone replacement therapy; Z79.899 Other long term (current) drug therapy
CPT/HCPCS: 36415; 71275; 71275-26; 80053; 83690; 83735; 83880; 84484; 85025; 87428-QW; 93005; 93308; 94640; 96360; 99285-25; A9270-GY; J7030; J7620-GY; Q9967